=== PATIENT | male | born 1975 | race Caucasian/White ===

== ENCOUNTER 2021-02-02 10:03 | Emergency (ER) | payer BC, SELFPAY ==
--- NOTE | ~2021-02-02 | XR_ITS ---
EXAMINATION: XR hand RT min 3V DATE: 02/02/2021 10:29 INDICATION: Right hand pain. TECHNIQUE: 3 views of right hand were obtained. COMPARISON: None. FINDINGS: Bone alignment is normal. No fracture. There is mild osteoarthritis of first carpometacarpa l joint, second and fourth metacarpophalangeal joints, and third and fourth distal interphalangeal ugo ints. IMPRESSION: 1. Mild polyarticular osteoarthritis. Reviewed, dictated and finalized at location B. ER PRINTING MACHINE OPERATOR
[2021-02-02 10:15] VITALS: BP 109/82; PULSE 79; RESP 16; TEMP 36.3; O2SAT 99
--- NOTE | 2021-02-02 11:10 | ED.UPPEXIN ---
HPI - Extremity Injury (Upper) General Chief Complaint: Extremity Injury, Upper Stated Complaint: Wrist Pain Time Seen by Provider: 02/02/21 11:10 Source: patient and RN notes reviewed Mode of arrival: ambulatory Limitations: no limitations History of Present Illness HPI narrative: 45-year-old male presents with concern for right hand pain. Reports pain started 5 to 6 weeks ago. He denies known injury or trauma. Reports pain worsens with pinching his first and second digits together. 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 He reports he has been using a brace without relief. He reports worsening pain with certain twisting motions such as throwing a football. He denies redness, swelling, warmth, open skin, rash. MD complaint: injury to: right and hand Related Data Allergies Allergy/AdvReac Type Severity Reaction Status Date / Time No Known Allergies Allergy Verified 02/02/21 10:27 Review of Systems Review of Systems: CONSTITUTIONAL: Denies malaise, chills, sweats, or fever. SKIN: Denies rash or itching, redness, bruising, swelling. MUSCULOSKELETAL: Reports right hand pain NEUROLOGIC: Denies numbness, weakness All systems reviewed & are unremarkable except as noted in HPI and below PMFSH Social History Social History (System 02/02/21 @ 08:01 by Melissa He) Smoking status: Never smoker Alcohol intake: current Comments At time of signature, agree with nursing past medical, surgical, social and family history. There is no relevant family history pertinent to the presenting complaint Exam Narrative: GENERAL: Well-appearing, well-nourished, and in no acute distress. HEAD: Normocephalic EYES: PERRLA, conjunctivae clear NECK: Supple. CHEST: Speaks in full sentences. No respiratory distress. HEART: Regular rate and rhythm. Normal and equal peripheral pulses. EXTREMITIES: Right hand and digits of hand have normal strength and sensation. 5/5 strength with digit flexion, extension. Range of motion normal. No clubbing, cyanosis, or edema noted. No point tenderness. Skin intact. Normal digital cascade with flexion of fingers, median, ulnar and radial nerve intact. Normal sensation of each side of finger. Can perform 'okay' sign, 'cross over finger test of index and middle fingers' and 'thumbs up' sign. No scissoring. Normal thumb opposition. Good capillary refill and radial pulse. Distal capillary refill less than 3 seconds. SKIN: Warn, dry, intact, pink. No rash NEURO: Alert and oriented x3. PSYCH: Normal mood and affect Course Course Emergency Course: Patient is aware of diagnosis, understands and agrees to treatment plan. Anticipatory guidance given. Patient agrees to follow-up as directed and is aware of reasons to seek care at the emergency department. Portions of this record may have been created with voice recognition software Vital Signs Vital signs: Vital Signs Temperature 97.4 F L 02/02/21 10:15 Pulse Rate 79 02/02/21 10:15 Respiratory Rate 16 02/02/21 10:15 Blood Pressure 109/82 02/02/21 10:15 Pulse Oximetry 99 02/02/21 10:15 Temperature 97.4 F L 02/02/21 10:15 Pulse Rate 79 02/02/21 10:15 Respiratory Rate 16 02/02/21 10:15 Blood Pressure 109/82 02/02/21 10:15 Pulse Oximetry 99 02/02/21 10:15 Reviewed. MDM - Extremity Injury (Upper) MDM Narrative Medical decision making narrative: Patients pain is consistent with musculoskeletal etiology. No signs of neurological or vascular compromise on exam. Compartments and tissues are soft without signs of compartment syndrome. Pain is felt appropriate for further evaluation on an outpatient basis. Differential Diagnosis Differential diagnosis: Likely sprain and strain of wrist, fracture of wrist and other (Tendinitis, hand fracture) Imaging Data Radiologist's impression: EXAMINATION: XR hand RT min 3V DATE: 02/02/2021 10:29 INDICATION: Right hand pain. TECHNIQUE: 3 views of right hand were obtained. COMPARISON: None. FIND
== END 2021-02-02 11:20 | disposition home or self-care (01) ==
PROVIDERS: Emergency Provider Nurse Practitioner; PCP Family Medicine
DX: M79.641 Pain in right hand (principal)
CPT/HCPCS: 73130; 99203; G0463

== ENCOUNTER 2021-04-11 18:28 | Emergency (ER) | payer BC, SELFPAY ==
[2021-04-11 18:34] VITALS: BP 150/94; PULSE 76; RESP 16; TEMP 36.6; O2SAT 99
--- NOTE | 2021-04-11 18:43 | ED.ABDPAIN ---
HPI - Abdominal Pain General Chief Complaint: Abdominal Pain Stated Complaint: abd pain Time Seen by Provider: 04/11/21 18:43 Source: patient, RN notes reviewed and old records reviewed Mode of arrival: ambulatory Limitations: no limitations History of Present Illness HPI narrative: 46-year-old male who presents to [facility] with complaints of right upper abdominal pain which started about 3 to 4 hours ago. Patient reports at 11:00 today he ate a [place] fish sandwich which he has had before with no problems. Patient states that he took a [employer] which did not help his symptoms. Patient denies any radiation of pain to his back, no vomiting but feels a little nausea. Patient denies any shortness of breath or any radiation of pain to his back or to his arm, denies any diaphoresis. MD elicited complaint: abdominal pain Onset (ago): hour(s) (3 to 4 hours) Pain Consistency: constant Location: epigastric (Right upper epigastric) Related Data Allergies Allergy/AdvReac Type Severity Reaction Status Date / Time No Known Allergies Allergy Verified 02/02/21 10:27 Review of Systems Review of Systems: CONSTITUTIONAL: Denies fever, chills, or sweats. EYES: Denies visual changes, redness, or discharge. ENT: Denies rhinorrhea, congestion, sore throat, or otalgia. CARDIOVASCULAR: Denies chest pain, palpitations, or edema, no diaphoresis or any shortness of breath.. RESPIRATORY: Denies cough or dyspnea. GASTROINTESTINAL: Reports upper right abdominal pain, positive nausea, no vomiting, or diarrhea. GENITOURINARY: Denies dysuria or hematuria. SKIN: Denies rash or itching. MUSCULOSKELETAL: Denies back pain, joint pain, or myalgia. NEUROLOGIC: Denies headache, numbness, or weakness. PSYCHIATRIC: Denies anxiety or depression. All systems reviewed & are unremarkable except as noted in HPI and below PMFSH Past Medical History Medical History No pertinent past medical history Surgical History Surgical History No significant past surgical history Family History Family History Other No significant family history Social History Social History (Updated 04/11/21 @ 20:17 by Tyra Robertson NP) Smoking status: Never smoker Alcohol intake: current Alcohol use details: Rare beer Substance use: never Living arrangements: with family Gender identity (if verbalized by the patient): Male Comments At time of signature, agree with nursing past medical, surgical, social and family history. There is no relevant family history pertinent to the presenting complaint Exam Narrative: GENERAL: Well-appearing, well-nourished, and in no acute distress. HEAD: Normocephalic, atraumatic. EYES: PERRLA and EOMI. ENT: Nares clear, no rhinorrhea or epistaxis. Mucous membranes moist. TMs normal with good light reflex throat pink with no lesions or exudates or tonsillar enlargement NECK: Supple. No lymphadenopathy CHEST: Clear to auscultation. No respiratory distress. SaO2 99% on room air HEART: Regular rate and rhythm. No murmur heard. Normal peripheral pulses. ABDOMEN: Soft,tender right upper abdomen epigastric region nondistended, normal active bowel sounds. Reports feels bloated normal bowel movement this morning EXTREMITIES: Normal range of motion. No edema. SKIN: Warm, dry, no rash. NEURO: No focal deficits. Alert and oriented x3. Course Course Level of Care: Express Care Visit Vital Signs Vital signs: Vital Signs Temperature 36.6 C 04/11/21 18:34 Pulse Rate 76 04/11/21 18:34 Respiratory Rate 16 04/11/21 18:34 Blood Pressure 150/94 H 04/11/21 18:34 Pulse Oximetry 99 04/11/21 18:34 Temperature 36.6 C 04/11/21 18:34 Pulse Rate 76 04/11/21 18:34 Respiratory Rate 16 04/11/21 18:34 Blood Pressure 150/94 H 04/11/21 18:34 Pulse Oximetry 99
[2021-04-11] MEDS: BELLADONNA ALK/PHENOB ELIX 10 ML, MAG HYDROX/ALUMINUM HYD/SIMETH 30 ML, LIDOCAINE HCL 2... PO (19:07)
--- NOTE | 2021-04-11 19:08 | PC.NURSE ---
was unable to scan medications d/t gi cocktail not having belladonna available. beauty advisor aware and gave vorb maalox 30 ml and viscous wywdavfes50 ml.
--- NOTE | 2021-04-11 19:29 | PC.NURSE ---
stated could have transportation if needed but preferred to not take phenergan. does have pmd.
--- NOTE | 2021-04-11 19:38 | PC.NURSE ---
chart shows maalox but is [place].
== END 2021-04-11 19:48 | disposition home or self-care (01) ==
PROVIDERS: Emergency Provider Registered Nurse; PCP Family Medicine
DX: K52.9 Noninfective gastroenteritis and colitis, unspecified (principal)
CPT/HCPCS: 99213; A9270; G0463; J2550